=== PATIENT | female | born 1975 | race Hispanic/Latino ===

== ENCOUNTER 2017-08-24 17:17 | Emergency (ER) | payer SELFPAY ==
[~2017-08-24] VITALS: Ht 157.5 cm; Wt 79.4 kg
[2017-08-24] MEDS ORDERED: VENTOLIN HFA18 GM INH (17:54)
[2017-08-24] MEDS ORDERED: ZITHROMAX250 MG PO (17:54)
== END 2017-08-24 18:05 | disposition home or self-care (01) ==
LOC: ED 17:17
DX: J40 Bronchitis, not specified as acute or chronic (principal)
CPT/HCPCS: 71046; 94640; 99283

== ENCOUNTER 2020-08-27 22:44 | Emergency (ER) | payer OTHER ==
[~2020-08-27] VITALS: Ht 157.5 cm; Wt 71.0 kg
[~2020-08-27 22:44] MED LIST: VENTOLIN HFA18 GM INH; ZITHROMAX250 MG PO
[2020-08-27] MEDS ORDERED: TOPROL XL25 MG PO (23:09)
[2020-08-28] MEDS ORDERED: PEPCID20 MG PO (00:19)
[2020-08-28] MEDS ORDERED: ONDANSETRON ODT4 MG PO (00:19)
[2020-08-28] MEDS ORDERED: MAALOX ADVANCE1 EACH PO (00:19)
--- NOTE | 2020-08-28 00:23 | EKG ---
[facility] [address] [facility] [place], [place] [address] Signed Normal sinus rhythm Normal ECG No previous ECGs available Confirmed by ARMANDO SOLARES MD ([id number]) on 08/28/2020 12:23:08 AM Electronically Signed By: ARMANDO SOLARES MD 08/28/20 0023 PATIENT NAME: MAURI FORDE Electrocardiogram DATE OF : 71 PHYSICIAN: ARMANDO SOLARES MD REPORT #: [id number] REPORT IS CONFIDENTIAL AND NOT TO BE RELEASED WITHOUT AUTHORIZATION
== END 2020-08-28 01:22 | disposition home or self-care (01) ==
LOC: ED 22:44
DX: R10.13 Epigastric pain (principal); R11.2 Nausea with vomiting, unspecified; I10 Essential (primary) hypertension; Z79.899 Other long term (current) drug therapy
CPT/HCPCS: 80053; 83690; 84484; 84703; 85025; 93005; 93010; 96374; 96375; 99284-25; J2270; J2405; J7121

== ENCOUNTER 2023-04-11 12:39 | Emergency (ER) | payer OTHER ==
[~2023-04-11] VITALS: Ht 157.5 cm; Wt 76.6 kg
--- OUTSIDE RECORDS SUMMARY | ~2023-04-11 | XMS | Continuity of Care Document ---
Demographics + + + | Address | [address] | | | [place] [address] | + + + | Preferred Language | Unknown | + + + | Marital Status | Never | + + + | Baptist Affiliation | Unknown | + + + | Race | Unknown | + + + | Ethnic Group | Unknown | + + + Author + + + | Author | [facility] | + + + | Organization | [facility] | + + + | Address | [address] | | | [place] [address] | + + + | Phone | | + + + Care Team Providers + + + + | Care Nocturnist Physician Name | Role | Phone | + + + + Unavailable | Unavailable | + + + + Unavailable | Unavailable | + + + + Unavailable | Unavailable | + + + + Allergies No information. Encounters No information. Functional Status No information. Immunizations No information. Medications + + + + | date | description | facility | + + + + | 2020-08-28 00:00 | FAMOTIDINE | [facility] | + + + + | 2020-08-28 00:00 | ONDANSETRON | [facility] | + + + + | 2017-08-24 00:00 | AZITHROMYCIN | [facility] | + + + + | 2022-04-01 00:00 | Paxlovid 20 x 150 MG & 10 | [facility] | | | x 100MG Oral Tablet Therapy | | | | Pack | | + + + + | 2022-04-01 00:00 | {20 (nirmatrelvir 150 MG | [facility] | | | Oral Tablet) / 10 | | | | (ritonavir 100 MG Oral | | | | Tablet) } Pack [Paxlovid | | | | 5-Day] | | + + + + | 2020-08-28 00:00 | CALCIUM | [facility] | | | CARBONATE/SIMETHICONE | | + + + + | 2021-09-09 00:00 | drug or medication | [facility] | | | | | + + + + | 2021-09-16 00:00 | drug or medication | [facility] | | | | | + + + + | 2017-08-24 00:00 | ALBUTEROL SULFATE | [facility] | + + + + | 2022-08-06 00:00 | METOPROLOL SUCCINATE | [facility] | + + + + Problems + + + + | date | description | facility | + + + + | 2017-08-24 00:00 | Bronchitis | [facility] | + + + + | 2020-08-28 00:00 | Epigastric pain | [facility] | + + + + | 2020-08-28 00:00 | Vomiting | [facility] | + + + + | 2022-08-06 00:00 | Patient left without being | [facility] | | | seen | | + + + + Procedures No information. Results/Labs +--------+--------+ +---------+--------+---------+ | test | date | facility | value | unit | notes | +--------+--------+ +---------+--------+---------+ + + | [facility] COVID-19 Rapid Antigen test | + + + + + + + + + | [facility] | 2021-09-08 | [facility] | NEGATIVE | (missing) | (missing) | | [facility] | 16:31 | [facility] | | | | | COVID-19 | | [facility] | | | | | Rapid Test | | | | | | + + + + + + + + + | [facility] COVID-19 Rapid Antigen test | + + + + + + + + + | [facility] | 2021-09-12 | [facility] | NEGATIVE | (missing) | (missing) | | [facility] | 11:56 | MEDICAL | | | | | COVID-19 | | [facility]. | | | | | Rapid Test | | | | | | + + + + + + + Social History + + + + | date | description | facility | + + + + | 2021-09-09 00:00 | Unknown if ever smoked | [facility] | | | | | + + + + | 2021-09-16 00:00 | Unknown if ever smoked | [facility] | | | | | + + + + | 2022-04-02 00:00 | Unknown if ever smoked | [facility] | | | | | + + + + Vital Signs + + + + + | date | measurement | value | units | + + + + + | 2021-09-08 00:00 | heart_rate | 1|1| | completed | + + + + + | 2021-09-08 00:00 | heart_rate | 89 | /min | + + + + + | 2021-09-08 00:00 | o2_saturation | 99 | % | + + + + + | 2021-09-08 00:00 | temperature_metric | 36.28 | C | | | | | | + + + + + | 2021-09-08 00:00 | | 97.3 | F | | | temperature_standar | | | | | d | | | + + + + + | 2021-09-08 00:00 | weight_metric | 77.11 | kg | + + + + + | 2021-09-08 00:00 | weight_standard | 170 | lb | + + + + + | 2021-09-12 00:00 | heart_rate | 1|1| | completed | + + + + + | 2021-09-12 00:00 | heart_rate | 89 | /min | + + + + + | 2021-09-12 00:00 | o2_saturation | 99 | % | + + + + + | 2021-09-12 00:00 | temperature_metric | 36.11 | C | | | | | | + + + + + | 2021-09-12 00:00 | | 97 | F | | | temperature_standar | | | | | d | | | + + + + + | 2021-09-12 00:00 | weight_metric | 77.11 | kg | + + + + + | 2021-09-12 00:00 | weight_standard | 170 | lb | + + + + + | 2022-04-01 00:00 | heart_rate | 1|1| | completed | + + + + + | 2022-04-01 00:00 | heart_rate | 94 | /min | + + + + + | 2022-04-01 00:00 | o2_saturation | 99 | % | + + + + + | 2022-04-01 00:00 | temperature_metric | 36.61 | C | | | | | | + + + + + | 2022-04-01 00:00 | | 97.9 | F | | | temperature_standar | | | | | d | | | + + + + + | 2022-04-01 00:00 | weight_metric | 77.11 | kg | + + + + + | 2022-04-01 00:00 | weight_standard | 170 | lb | + + + + + | 2022-08-06 00:00 | BMI | 32.0 | kg/m2 | + + + + + | 2022-08-06 00:00 | BP_diastolic | 92 | mmHg | + + + + + | 2022-08-06 00:00 | BP_systolic | 160 | mmHg | + + + + + | 2022-08-06 00:00 | heart_rate | 75 | /min | + + + + + | 2022-08-06 00:00 | height_metric | 157.48 | cm | + + + + + | 2022-08-06 00:00 | height_standard | 62 | in | + + + + + | 2022-08-06 00:00 | o2_saturation | 99 | % | + + + + + | 2022-08-06 00:00 | respiration_rate | 16 | /min | + + + + + | 2022-08-06 00:00 | temperature_metric | 36.67 | C | | | | | | + + + + + | 2022-08-06 00:00 | | 98 | F | | | temperature_standar | | | | | d | | | + + + + + | 2022-08-06 00:00 | weight_metric | 79.3 | kg | + + + + + | 2022-08-06 00:00 | weight_standard | 174.83 | lb | + + + + +"
--- OUTSIDE RECORDS SUMMARY | ~2023-04-11 | XMS | Continuity of Care Document ---
Demographics + + + | Address | [address] | | | [place] [address] | + + + | Preferred Language | Unknown | + + + | Marital Status | Never | + + + | Christian Affiliation | Unknown | + + + | Race | Unknown | + + + | Ethnic Group | Unknown | + + + Author + + + | Author | [facility] | + + + | Organization | [facility] | + + + | Address | [address] | | | [place] [address] | + + + | Phone | | + + + Care Team Providers + + + + | Care Car Seat Maker Name | Role | Phone | + [...] | 2020-08-28 00:00 | FAMOTIDINE | [facility] | + + + + | 2020-08-28 00:00 | ONDANSETRON | [facility] | + + + + | 2017-08-24 00:00 | AZITHROMYCIN | [facility] | + + + + | 2022-04-01 [...] | 2020-08-28 00:00 | CALCIUM | [facility] | | | CARBONATE/SIMETHICONE | | + + + + | 2021-09-09 00:00 | drug or medication | [facility] | | | | | + + + + | 2021-09-16 00:00 | drug or medication | [facility] | | | | | + + + + | 2017-08-24 00:00 | ALBUTEROL SULFATE | [facility] | + + + + | 2022-08-06 00:00 | METOPROLOL SUCCINATE | [facility] | + + + + Problems + + + + | date | description | facility | + + + + | 2017-08-24 00:00 | Bronchitis | [facility] | + + + + | 2020-08-28 00:00 | Epigastric pain | [facility] | + + + + | 2020-08-28 00:00 | Vomiting | [facility] | + + + + | 2022-08-06 00:00 | Patient left without being | [facility] | | | seen | | + [...] 00:00 | Unknown if ever smoked | [facility] | | | | | + + + + | 2022-04-02 00:00 | Unknown if ever smoked | [facility] | | | | [...]
[~2023-04-11 12:39] MED LIST changes: +MAALOX ADVANCE1 EACH PO; +ONDANSETRON ODT4 MG PO; +PEPCID20 MG PO; +TOPROL XL25 MG PO
[2023-04-11] MEDS ORDERED: MONO-LINYAH1 EACH PO (13:03)
[2023-04-11 13:42] LABS: BASOPHILS 0.5 % (0-2); EOSINOPHILS 1.8 % (0-6); HEMATOCRIT 32.3 % (35.0-50.0); HEMOGLOBIN 10.4 g/dL (12.0-18.0); LYMPHOCYTES 25.4 % (24-44); MCH 24.1 (27-36); MCHC 32.2 g/dl (30-36); MONOCYTES 7.1 % (0-12); NEUTROPHILS 65.2 % (39-80); RBC 4.31 M/ul (4.3-5.7); RDW 14.6 (10.5-15.0)
[2023-04-11 13:56] LABS: ALBUMIN 3.2 g/dL (3.4-5.0); ALBUMIN/GLOBULIN RATIO 0.7 (1.1-2.4); ANION GAP 10.1 (7-21); BILIRUBIN, TOTAL 0.2 ng/dL (0.2-1.0); BUN/CREATININE RATIO 17.28 (6.0-28.6); CALCIUM 9.1 mg/dL (8.5-10.1); CREATININE, SERUM 0.81 mg/dL (0.55-1.02); MAGNESIUM 2.3 mg/dL (1.8-2.4); POTASSIUM 3.1 mmol/L (3.5-5.1); PROTEIN, TOTAL 7.8 g/dL (6.4-8.2)
[2023-04-11 14:12] LABS: INR 0.93 (0.80-1.30); PROTIME 12.1 Sec (11.2-14.2)
[2023-04-11 14:24] LABS: PLATELET COUNT 233 K/uL (140-440)
[2023-04-11] MEDS ORDERED: IRON325 M1 PO (14:55)
[2023-04-11] MEDS ORDERED: KLOR-CON 1010 MEQ PO (14:55)
[2023-04-11 15:30] VITALS: BP 135/70
[2023-04-11 15:41] LABS: BILIRUBIN, URINE NEGATIVE (negative); BLOOD/HGB, URINE MODERATE (Negative); KETONE, URINE NEGATIVE (Negative); LEUK ESTERASE, URINE SMALL (negative); NITRITE, URINE POSITIVE (negative); PH, URINE 6.5 (5-7)
[2023-04-11 15:56] LABS: BACTERIA, URINE 2+ /hpf (negative); CASTS, URINE NONE SEEN \\lpf; COLLECTION TYPE, URINE CLEAN CATCH; CRYSTALS, URINE NONE SEEN (0-1+); EPITHELIAL CELLS, URINE 0 /lpf (0-1+); RED BLOOD CELLS, URINE >50 /hpf (0-5); REFLEX CULTURE, URINE Yes (No); WHITE BLOOD CELLS, URINE 21-40 /HPF (0-5)
--- NOTE | 2023-04-11 21:13 | EKG ---
[facility] [address] [facility] [place] [address] Signed Normal sinus rhythm Normal ECG When compared with ECG of 27-AUG-2020 22:52, No significant change was found Confirmed by Elly Hernandez MD () on 04/11/2023 9:13:12 PM Electronically Signed By: ELLY HERNANDEZ MD 04/11/232112 PATIENT NAME: MAURI FORDE Electrocardiogram DATE OF : 71 PHYSICIAN: ELLY HERNANDEZ MD REPORT #: [id number] REPORT IS CONFIDENTIAL AND NOT TO BE RELEASED WITHOUT AUTHORIZATION
== END 2023-04-11 15:30 | disposition home or self-care (01) ==
LOC: ED 12:39
PROVIDERS: Family Medicine
DX: D64.9 Anemia, unspecified (principal); E87.6 Hypokalemia; I10 Essential (primary) hypertension; Z79.899 Other long term (current) drug therapy
CPT/HCPCS: 36415; 80053; 81001; 83735; 85025; 85060; 85610; 93005; 93010; A9270; J7121

== ENCOUNTER 2025-04-23 20:06 | Emergency (ER) | payer OTHER ==
[~2025-04-23] VITALS: Ht 157.5 cm; Wt 79.0 kg
[~2025-04-23 20:06] MED LIST changes: +IRON325 M1 PO; +KLOR-CON 1010 MEQ PO; +MONO-LINYAH1 EACH PO
[2025-04-23] MEDS ORDERED: LOSARTAN POTASS25 MG PO (21:15)
[2025-04-23] MEDS ORDERED: CEPHALEXIN500 M1 PO (21:53)
[2025-04-23] MEDS ORDERED: CEPHALEXIN MONOHYDRATE 500 MG HOME.PACK PO ONE (22:00)
[2025-04-23 22:08] VITALS: BP 121/73
== END 2025-04-23 22:08 | disposition home or self-care (01) ==
LOC: ED 20:06
DX: N61.0 Mastitis without abscess (principal); I10 Essential (primary) hypertension; Z79.899 Other long term (current) drug therapy
CPT/HCPCS: 76604; 99283-25; A9270

== ENCOUNTER 2025-07-22 17:20 | Emergency (ER) | payer OTHER ==
[~2025-07-22] VITALS: Ht 157.5 cm; Wt 77.7 kg
[~2025-07-22 17:20] MED LIST changes: +CEPHALEXIN500 M1 PO; +LOSARTAN POTASS25 MG PO
[2025-07-22] MEDS ORDERED: CRANBERRY200 MG PO (18:34)
[2025-07-22 18:40] LABS: BLOOD/HGB, URINE NEGATIVE (Negative); KETONE, URINE NEGATIVE (Negative); LEUK ESTERASE, URINE TRACE (negative); NITRITE, URINE NEGATIVE (negative)
[2025-07-22 18:40] LABS: BASOPHILS 0.7 % (0.1-1.2); EOSINOPHILS 5.1 % (0.7-5.8); LYMPHOCYTES 34.7 % (19.3-51.7); MCH 29.4 PG (25.6-32.2); MCHC 33.4 g/dL (32.2-35.5); MCV 87.9 fL (79.4-94.8); MONOCYTES 5.8 % (4.7-12.5); NEUTROPHILS 53.5 % (34.0-71.1); RBC 4.56 M/uL (3.93-5.22)
[2025-07-22 18:53] LABS: BACTERIA, URINE 2+ /hpf (negative); CASTS, URINE NONE SEEN \\lpf; CRYSTALS, URINE NONE SEEN (0-1+); EPITHELIAL CELLS, URINE SQUAMOUS 1+ /lpf (0-1+); REFLEX CULTURE, URINE Yes (No)
[2025-07-22 18:58] LABS: ALT (SGPT) 25.0 U/L (14-59); AST (SGOT) 14.0 U/L (15-37); GLOMERULAR FILTRATION RATE,EST 81.0 mL/min (>60); PROTEIN, TOTAL 7.9 g/dL (6.4-8.2); UREA NITROGEN 11.0 mg/dL (7-18)
[2025-07-22] MEDS ORDERED: MACROBID 100 M100 MG PO (19:37)
[2025-07-22] MEDS ORDERED: IBU800 MG PO (19:37)
[2025-07-22] MEDS ORDERED: NITROFURANTOIN MONOHYD MACROCR 100 MG HOME.PACK PO ONE (19:45)
[2025-07-22 19:51] VITALS: BP 107/76
== END 2025-07-22 19:53 | disposition home or self-care (01) ==
LOC: ED 17:20
PROVIDERS: Emergency Medicine
DX: S39.011A Strain of muscle, fascia and tendon of abdomen, initial encounter (principal); N39.0 Urinary tract infection, site not specified; I10 Essential (primary) hypertension; X58.XXXA Exposure to other specified factors, initial encounter
CPT/HCPCS: 36415; 80053; 81001; 83690; 85025; 87077; 87088; 87186; 99284